=== PATIENT | male | born 1960 | race Caucasian/White ===

== ENCOUNTER 2016-11-10 18:45 | Emergency (ER) | payer SELFPAY ==
[~2016-11-10] VITALS: Ht 175.3 cm; Wt 79.4 kg
[2016-11-10] MEDS ORDERED: MORPHINE SULFATE 2 MG/1 ML DISP.SYRIN IV ONE (19:00)
[2016-11-10] MEDS ORDERED: ONDANSETRON 4 MG/2 ML VIAL IV ONE (19:00)
[2016-11-10] MEDS ORDERED: IV NORMAL SALINE 1000 ML BAG IV ONE (19:00)
--- NOTE | 2016-11-10 19:07 | NUR ---
[facility]IB [facility], PT CAME FROM HOME, ACCOMPANIED BY SON AT BEDSIDE. MANDARINE SPEAKING W/ MINIMAL CONGOLESE. C/O ABDOMINAL PAIN X 3 DAYS, WORSENING TODAY. +NAUSEA, +VOMITING [X4 TODAY]. DENIES ANY OTHER PAST MEDICAL PROBLEM. HX OF ABDOMINAL SURGERY X 15 YEARS AGO. PT VERBALIZED THAT HE CALLED 911 BECAUSE HE FELT THE SAME SHARP PAIN IN THE SAME SPOT HE HAD THE SURGERY X 15 YEARS AGO. TOOK IBUPROFEN AT HOME. MD BOWEN AT BEDSIDE PERFORMING MSE. REPORT GIVEN TO SARAH BLAKELY OF PT'S CURRENT CONDITION
[2016-11-10] MEDS ORDERED: MORPHINE SULFATE 4 MG/1 ML DISP.SYRIN ONE (19:21)
[2016-11-10] MEDS ORDERED: ONDANSETRON 4 MG/2 ML VIAL ONE (19:21)
[2016-11-10 19:27] LABS: BASOPHILS % (AUTO) 0.6 % (0.0-2.0); EOSINOPHILS # (AUTO) 0.2 K/uL (0.0-0.7); EOSINOPHILS % (AUTO) 2.6 % (0.0-7.0); HEMATOCRIT 48.8 % (40-50); LYMPHOCYTES # (AUTO) 1.5 K/UL (0.8-4.8); LYMPHOCYTES % (AUTO) 23.6 % (20.5-51.5); MEAN CORPUSCULAR HGB CONC 33 g/dL (32.0-37.0); MEAN CORPUSCULAR VOLUME 88.2 FL (82.0-92.0); MONOCYTES # (AUTO) 0.5 K/UL (0.1-1.30); MONOCYTES % (AUTO) 7.5 % (0.0-11.0); NEUTROPHILS # (AUTO) 4.3 K/UL (1.8-8.9); NEUTROPHILS % (AUTO) 65.7 % (38.5-71.5); PLATELET COUNT (AUTO) 207 K/UL (150-450); RED BLOOD CELL COUNT(AUTO) 5.53 MIL/UL (4.7-6.1); WHITE BLOOD COUNT (AUTO) 6.5 K/UL (4.0-11.2)
[2016-11-10 19:35] LABS: BILIRUBIN,DIRECT 0.2 mg/dL (0.0-0.2); BILIRUBIN,TOTAL 0.8 mg/dL (0.2-1.0); TOTAL PROTEIN, SERUM 7.2 g/dL (6.4-8.2)
[2016-11-10 20:06] LABS: CREATININE 0.8 mg/dL (0.6-1.3); POTASSIUM 3.5 mmol/L (3.5-5.1)
--- NOTE | 2016-11-10 23:42 | NUR ---
Patient discharged to home in stable conditon. Written and verbal after care instructions given. Patient verbalizes understanding of instructions.
[2016-11-10 23:43] VITALS: BP 141/82
== END 2016-11-10 23:48 | disposition home or self-care (01) ==
LOC: ER 18:50
DX: R10.9 Unspecified abdominal pain (principal); E86.0 Dehydration; R91.1 Solitary pulmonary nodule
CPT/HCPCS: 71010; 83690; 85025; 85730; A4663; J2270; J2405